=== PATIENT | female | born 1935 | race Caucasian/White ===

== ENCOUNTER → 2017-05-16 | Outpatient (CLI) | payer OTHER, MEDICARE ==
[~2017-05-16] MED LIST: ACETAMINOPHEN-1 EAC1; ASPIR 8181 MG PO; BENADRYL25 MG PO; COLACE100 MG PO; COZAAR 50 MG TA50 M2 PO; LOVASTATIN 20 M20 MG PO; MIRALAX17 GM PO; NORCO 5-325 TA1 EACH PO; TRAVATAN Z2.5 ML OPHTHALMIC; TYLENOL325 MG PO; UNICOMPLEX M TA1 TA1 PO; VITAMIN D400 UNI1 PO
== END ==
LOC: RAD 01:23
DX: Z12.31 Encounter for screening mammogram for malignant neoplasm of breast (principal)

== ENCOUNTER → 2018-07-30 | Outpatient (CLI) | payer OTHER, MEDICARE | LOC: RAD 03:03 | DX: Z12.31 Encounter for screening mammogram for malignant neoplasm of breast (principal); I10 Essential (primary) hypertension; E78.00 Pure hypercholesterolemia, unspecified ==